=== PATIENT | male | born 1940 | race Caucasian/White ===

== ENCOUNTER 2016-12-07 09:24 | Emergency (ER) | payer MEDICARE, OTHER ==
[2016-12-07 10:12] LABS: #Eosinphils 0.1 thou/uL (0.0-0.7); #Lymphocytes 1.6 thou/uL (1.20-3.40); #Monocytes 0.5 thou/uL (0.11-0.59); #Neutrophils 6.4 thou/uL (1.40-6.50); %Basophils 0.6 % (0.0-1.0); %Eosinophils 0.6 % (0.0-10.0); %Lymphocytes 18.7 % (21.0-51.0); %Monocytes 5.3 % (0.0-10.0); Hematocrit 39.8 % (42.0-52.0); Mean Platelet Volume 7.9 fL (7.4-10.4); Red Blood Cell (RBC) Count 4.83 mill/uL (4.70-6.10); White Blood Cell (WBC) Count 8.6 thou/uL (4.8-10.8)
[2016-12-07 10:37] LABS: ALT (SGPT) 18 U/L (8-55); AST (SGOT) 16 U/L (5-34); Alkaline Phosphatase 94 U/L (40-150); Anion Gap 13 mmol/L (10-20); BUN (Urea Nitrogen) 19 mg/dL (8.4-25.7); Bilirubin, Total 0.4 mg/dL (0.2-1.2); Calc. Creatinine Clearance 0 mL/min (70-130); Calcium 9.8 mg/dL (7.8-10.44); Carbon Dioxide 26 mmol/L (23-31); Chloride 102 mmol/L (98-107); Estimated GFR-MDRD 80; Globulin 3.6 g/dL (2.4-3.5); Lipase 381 U/L (8-78); Protein, Total 7.7 g/dL (5.8-8.1)
== END 2016-12-07 12:07 | disposition home or self-care (01) ==
LOC: ERS 09:24
DX: K85.90 Acute pancreatitis without necrosis or infection, unspecified (principal); C67.9 Malignant neoplasm of bladder, unspecified; I10 Essential (primary) hypertension; I25.2 Old myocardial infarction; E11.40 Type 2 diabetes mellitus with diabetic neuropathy, unspecified; Z87.891 Personal history of nicotine dependence; Z86.73 Personal history of transient ischemic attack (TIA), and cerebral infarction without residual deficits
CPT/HCPCS: 36415; 80053; 83690; 85025; 99284

== ENCOUNTER 2016-12-18 12:10 | Day surgery (SDC) | payer MEDICARE, OTHER ==
[2016-12-17 14:56] VITALS: BMI 29.0
[2016-12-18] MEDS ORDERED: Lidocaine 1% PF 5 ML VIAL ONE (14:57)
[2016-12-18] MEDS ORDERED: Propofol 200 MG/20 ML VIAL ONE (14:57)
[2016-12-18] MEDS ORDERED: ePHEDrine/0.9% NaCl/PF SYRINGE 50 mg/10 ml ONE (14:57)
--- NOTE | 2016-12-18 23:38 | OP ---
DATE OF PROCEDURE: 12/18/2016 PROCEDURE: Esophagogastroduodenoscopy with biopsy. SURGEON: Florencio Landin M.D. MEDICATIONS: Given by Anesthesiology Department. PREOPERATIVE DIAGNOSES: 1. Unexplained abdominal pain. 2. Unremarkable CT and gallbladder ultrasound. 3. Chronic gastroesophageal reflux. POSTOPERATIVE DIAGNOSES: 1. 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 2. Normal stomach and duodenum. PROCEDURE IN DETAIL: A written consent was obtained prior to procedure. After adequate sedation, t he forward-viewing endoscope was advanced down the stomach under direct vision to the third portion of duodenum. The duodenum appeared normal. Pylorus was patent. The gastric antrum, body, fundus, and cardia all appeared normal. Biopsy obtained for H. pylori. The GE junction was located at appr oximately 43 cm from the incisors. of columnar epithelium was seen extending in the lower 2 c m of the esophagus. Biopsies were obtained to evaluate for Castillo's. The distal, mid, and upper e sophagus appeared normal otherwise. Patient tolerated procedure well. ASSESSMENT: 1. Columnar epithelium in the lower esophagus, rule out Castillo's. 2. Otherwise normal upper endoscopy. 3. Suspect his episodic severe abdominal pain may be related to Keytruda or parastomal hernia. PLAN: 1. Await biopsy result. 2. Continue omeprazole 10 mg every day. 3. Surgical evaluation for parastomal hernia repair.
== END 2016-12-18 15:47 | disposition home or self-care (01) ==
LOC: SDC 12:10
PROVIDERS: ATTEND Internal Medicine Gastroenterology
PROC: 0DB58ZX Excision of Esophagus, Via Natural or Artificial Opening Endoscopic, Diagnostic (ICD-10-PCS; principal; 2016-12-18)
DX: K31.89 Other diseases of stomach and duodenum (principal); K21.9 Gastro-esophageal reflux disease without esophagitis; E78.00 Pure hypercholesterolemia, unspecified; I48.91 Unspecified atrial fibrillation; I25.10 Atherosclerotic heart disease of native coronary artery without angina pectoris; I10 Essential (primary) hypertension; I25.2 Old myocardial infarction; Z88.5 Allergy status to narcotic agent; Z88.8 Allergy status to other drugs, medicaments and biological substances; Z79.899 Other long term (current) drug therapy; Z95.810 Presence of automatic (implantable) cardiac defibrillator; Z98.49 Cataract extraction status, unspecified eye; Z98.890 Other specified postprocedural states; Z87.891 Personal history of nicotine dependence; Z86.73 Personal history of transient ischemic attack (TIA), and cerebral infarction without residual deficits
CPT/HCPCS: 36416; 88305; 88312; 88313; J2001; J2704

== ENCOUNTER 2016-12-19 00:23 | Emergency (ER) | payer MEDICARE, OTHER ==
[2016-12-19 01:34] LABS: #Lymphocytes 0.3 thou/uL (1.20-3.40); #Monocytes 0.2 thou/uL (0.11-0.59); #Neutrophils 12.8 thou/uL (1.40-6.50); %Eosinophils 0.1 % (0.0-10.0); %Lymphocytes 2.3 % (21.0-51.0); %Monocytes 1.2 % (0.0-10.0); Hematocrit 29.8 % (42.0-52.0); Mean Platelet Volume 8.4 fL (7.4-10.4); Red Blood Cell (RBC) Count 3.61 mill/uL (4.70-6.10); White Blood Cell (WBC) Count 13.3 thou/uL (4.8-10.8)
[2016-12-19 01:47] LABS: Lactic Acid - Sepsis 3.4 mmol/L (0.5-2.2)
[2016-12-19 01:51] LABS: ALT (SGPT) 36 U/L (8-55); AST (SGOT) 34 U/L (5-34); Alkaline Phosphatase 144 U/L (40-150); Anion Gap 13 mmol/L (10-20); BUN (Urea Nitrogen) 39 mg/dL (8.4-25.7); Bilirubin, Total 0.7 mg/dL (0.2-1.2); CK (CPK) 101 U/L (30-200); Calc. Creatinine Clearance 0 mL/min (70-130); Calcium 8.8 mg/dL (7.8-10.44); Carbon Dioxide 22 mmol/L (23-31); Chloride 102 mmol/L (98-107); Estimated GFR-MDRD 39; Globulin 2.9 g/dL (2.4-3.5); Protein, Total 6.1 g/dL (5.8-8.1)
[2016-12-19 02:56] LABS: Bilirubin Negative (Negative); Blood, Urine Moderate (Negative); Glucose, Urine (Dipstick) 500 mg/dL (Negative); Ketone, Urine Negative (Negative); Nitrite Negative (Negative); Protein, Urine (Dipstick) 30 mg/dL (Neg-Trace); Urobilinogen 0.2 mg/dL (0.2-1.0)
[2016-12-19 03:00] LABS: Bacteria/HPF 3+ HPF (None Seen); Hyaline Casts/LPF 0-3 HYALINE CAST LPF (0-3 Hyaline); Squamous Epithelial None Seen HPF (0-3)
[2016-12-19] MEDS ORDERED: cefTRIAXone\\ROCEPHIN 2 GM VIAL ONE (04:00)
--- NOTE | 2016-12-19 09:23 | RAD ---
CHEST 1 VIEW: HISTORY: Sepsis. COMPARISON: Chest 1 view 12/26/15. FINDINGS: Heart catheter tip in good position. Cardiac device is similar. Heart size is similar. No focal airspace consolidation, pneumothorax, or effusion. Rotator cuff arthropathy bilaterally. 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 IMPRESSION: No acute intrathoracic abnormality. POS: [facility]
--- NOTE | 2016-12-19 10:44 | CT ---
PRELIMINARY REPORT/[facility]/EMERGENCY AFTER HOURS PROCEDURE: EXAM: CT Abdomen and Pelvis Without Intravenous Contrast EXAM DATE/TIME: Exam ordered 12/19/2016 2:51 AM CLINICAL HISTORY: 76 years old, male; Pain; Abdominal pain; Epigastric; Prior surgery; Patient HX: Er 5; Onset of feve r and chills tonight with tmax 101f at home. Improved after motrin. Also had associated myalgias of anterior thighs which too resolved spontaneously. No cp, cough or otherwise. 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 That pain remains intermitte nt and is unchanged. Surgical HX of angioplasty, ablation, pacemaker/defib, bladder and prostate rem erica, urinary diversion. Carotid SX *low gfr TECHNIQUE: Axial computed tomography images of the abdomen and pelvis without intravenous contrast. Coronal reformatted images were created and reviewed. COMPARISON: No relevant prior studies available. FINDINGS: Lower thorax: No acute findings. ABDOMEN: Liver: Unremarkable. Gallbladder and bile ducts: Unremarkable. No calcified stones. No ductal dilation. Pancreas: Unremarkable. No ductal dilation. Spleen: Unremarkable. No splenomegaly. Adrenals: Unremarkable. No mass. Kidneys and ureters: Right lower quadrant loop urostomy. The colostomy loop deep to the abdominal wa ll is dilated with fluid although urostomy segment within the abdominal wall is completely collapsed , compatible with obstruction, presumably secondary to compression by the parastomal hernia. Moderat e bilateral hydroureteronephrosis. No urolithiasis. Stomach and bowel: No bowel wall thickening. Appendix: Right lower quadrant parastomal hernia contains the cecum, normal appendix, and proximal a scending colon. PELVIS: Bladder: Prior bladder resection. No stones. Reproductive: Unremarkable as visualized. ABDOMEN and PELVIS: Intraperitoneal space: Unremarkable. No free air. No significant fluid collection. Bones/joints: Spinal fusion hardware No acute fracture. No dislocation. Soft tissues: Unremarkable. Vasculature: Unremarkable. No abdominal aortic aneurysm. Lymph nodes: Unremarkable. No enlarged lymph nodes. IMPRESSION: Right lower quadrant loop urostomy. The colostomy loop deep to the abdominal wall is dilated with fl uid although urostomy segment within the abdominal wall is completely collapsed, compatible with obstruction, presumably secondary to compression by the parastomal hernia. Moderate bilateral hydrou reteronephrosis. No urolithiasis. Thank you for allowing us to participate in the care of your patient. Dictated and Authenticated by: Syd Harris MD 12/19/2016 3:11 AM Central Time ([place] \T\ [place]) FINAL REPORT CT ABDOMEN AND PELVIS WITHOUT CONTRAST: HISTORY: Fever, abdominal pain, multiple surgeries. COMPARISON: Stone protocol CT from 2005. FINDINGS: Severe bilateral hydronephrosis. There appears to be an ileal conduit with a stoma right lower quad rant of the abdomen. There is a large bowel and cecum containing parastomal hernia. This parastomal hernia may be causing some obstruction to the ileal conduit. The remainder of the abdomen is without acute findings. No free intraperitoneal gas. No dilated lo ops of large or small bowel. No renal stone is appreciated. Prior cystectomy. IMPRESSION: Findings and impression are concordant with the preliminary report. POS: [facility]
== END 2016-12-19 05:40 | disposition home or self-care (01) ==
LOC: ERS 00:23
DX: N30.01 Acute cystitis with hematuria (principal); I10 Essential (primary) hypertension; E11.40 Type 2 diabetes mellitus with diabetic neuropathy, unspecified; I25.2 Old myocardial infarction; I48.91 Unspecified atrial fibrillation; G47.30 Sleep apnea, unspecified; Z87.891 Personal history of nicotine dependence; Z86.73 Personal history of transient ischemic attack (TIA), and cerebral infarction without residual deficits; Z79.82 Long term (current) use of aspirin; Z79.84 Long term (current) use of oral hypoglycemic drugs; Z79.4 Long term (current) use of insulin; Z79.899 Other long term (current) drug therapy
CPT/HCPCS: 36415; 71010; 74176; 80053; 81003; 81015; 82550; 83605; 85025; 87040; 87077; 87086; 87149; 87186; 94760; 96361; 96365; J0696